=== PATIENT | female | born 1965 | race Caucasian/White ===

== ENCOUNTER 2018-09-23 07:24 | Outpatient (CLI) | payer OTHER ==
[~2018-09-23] VITALS: Ht 165.1 cm; Wt 90.3 kg
[~2018-09-23 07:24] MED LIST: DIAZ10TA PO; NO HOME MEDS; PER5325T PO; ZOF4T PO
[2018-09-23] MEDS ORDERED: albuterol 2.5 MG/3 ML nebule NEB ONE (08:00)
== END 2018-09-23 23:59 | disposition home or self-care (01) ==
LOC: RT 07:24
PROVIDERS: ATTEND Orthopaedic Surgery
DX: J98.11 Atelectasis (principal); M47.814 Spondylosis without myelopathy or radiculopathy, thoracic region; M43.8X4 Other specified deforming dorsopathies, thoracic region
CPT/HCPCS: 71046; 94060; 94727; 94729; 94760

== ENCOUNTER 2021-02-11 09:41 | Emergency (ER) | payer OTHER, BC ==
[~2021-02-11] VITALS: Ht 165.1 cm; Wt 104.5 kg
[2021-02-11] MEDS ORDERED: acetaminophen 325mg tablet PO ONE (12:25)
[2021-02-11 13:08] LABS: CLARITY,URINE CLEAR (Clear); COLOR,URINE YELLOW (Yellow); GLUCOSE, URINE NEGATIVE (Neg); KETONES,URINE NEGATIVE (Neg); LEUKOCYTE ESTERASE ,URINE NEGATIVE (Neg); NITRITES, URINE NEGATIVE (Neg); OCCULT BLOOD,URINE NEGATIVE (Neg); PROTEIN,URINE NEGATIVE (Neg); UROBILINOGEN,URINE 0.2 E.U/dL (0.2-1.0)
[2021-02-11 13:09] LABS: UA COLLECTION TYPE CLN CATCH MIDSTREAM
--- NOTE | 2021-02-11 13:41 | NUR ---
SHELLEY Roberts notified pt BP, at bedside at this time and assessing pt and update results.
[2021-02-11 13:42] VITALS: BP 170/86
== END 2021-02-11 13:45 | disposition home or self-care (01) ==
LOC: ER 09:41
DX: S39.012A Strain of muscle, fascia and tendon of lower back, initial encounter (principal); U07.1 COVID-19; G89.29 Other chronic pain; I10 Essential (primary) hypertension; Z87.440 Personal history of urinary (tract) infections; Z88.0 Allergy status to penicillin; Z88.1 Allergy status to other antibiotic agents; Z88.5 Allergy status to narcotic agent; Z91.041 Radiographic dye allergy status; Z88.8 Allergy status to other drugs, medicaments and biological substances; Z79.899 Other long term (current) drug therapy; X58.XXXA Exposure to other specified factors, initial encounter; Y93.89 Activity, other specified; Y92.89 Other specified places as the place of occurrence of the external cause; Y99.8 Other external cause status
CPT/HCPCS: 71045; 81003; 99284